=== PATIENT | female | born 1965 | race African-American/Black ===

== ENCOUNTER 2017-10-03 11:21 | Emergency (ER) | payer MEDICAID, SELFPAY ==
[2017-10-03 11:22] VITALS: BP 147/87; PULSE 101; RESP 18; TEMP 36.6; O2SAT 100; BMI 33.4
--- NOTE | 2017-10-03 11:54 | VDLE_ITS ---
Reason For Study: PAIN RIGHT GSV is normal. CFV is compressible, spontaneous, phasic, competent and demonstrates normal augmentation. FV is compressible, spontaneous, phasic, competent and demonstrates normal augmentation. POP V is compressible, spontaneous, phasic, competent and demonstrates normal augmentation. T/P Trunk is compressible. PTV is compressible. RT PerV is compressible. There is a hypoechoic, nonvascularized structure located in the Rt Popliteal space measuring 2.8 x 3.0 cm. Procedure Exam performed portable in ED. A preliminary report was called and/or faxed to ED. Interpretation Summary Deep veins of the right lower extremity are patent and compressible segmentally. There is no evidence of right lower extremity deep vein thrombosis. Valvular competence appears intact within the proximal deep venous system on the right . The right greater saphenous vein appears patent and compressible segmentally. A non-vascular, hypoechoic structure is noted in the right popliteal space, measuring 2.8 cm x 3.0 cm. This probably represents a popliteal cyst. Clinical correlation is advised. Ordering Physician: Fern Palma Performed By: Tiera Joy, AIDA, RVT
[2017-10-03] MEDS: predniSONE 20 MG Tablet 60 MG PO (12:02)
--- NOTE | 2017-10-03 15:15 | ED.DCSUM_ITS ---
- ER Visit Summary Date of Service: 10/03/17 Chief Complaint: Right leg pain History of Present Illness: The patient is a 52 F with pain and numbness to the mid right thigh and distally for the past 1 week. She states she has mild back pain. She has been having trouble with laxity of her kneecap on the right knee , especially when going up or down steps. She feels a swollen area behind her knee. She does have a history rheumatoid arthritis and neuropathy. She follows with a fatback trimmer but does not have an orthopedic physician. Physical Examination: Vital signs unremarkable. Patient sitting upright in bed no acute distress. Heart is regular rate and rhythm. Lung sounds are clear. Abdomen is soft nontender. Back examination was reproducible tenderness in the right low lumbar paraspinal muscles. Lower extremity examination reveals mild tenderness in the posterior right knee. She has full range of motion. She is strong distal pulses. There are no overlying skin changes and no focal joint pain or edema. Test Results: Venous ultrasound reveals no evidence of DVT. She has a Mitchell's cyst noted. Emergency Department Course and Treatment: Patient is given p.o. prednisone. On repeat evaluation she feels improved. She will be referred to orthopedics for follow-up and given a prednisone taper. Treatment Plan: [] Disposition: Discharge Impression: 1. Mitchell's cyst right knee 2. Lumbar radiculopathy This note was generated with [employer] dictation software. It may contain incorrect words, spelling, and punctuation that were not noted in review of the chart prior to signing ED Disposition - Plan for ED Patient: Chief Complaint: Lower Extremity Injury Referrals: Care Physician,No Primary [Primary Care Provider] -
--- NOTE | 2017-10-03 15:15 | ED.DEP ---
ED Disposition - Plan for ED Patient: Disposition: Home or Assisted Living Chief Complaint: Lower Extremity Injury Instructions: ED Cyst Mitchell, ED Sciatica Prescriptions: Prednisone 10 mg PO UD #33 tablet Referrals: Kevin Willis MD [STAFF PHYSICIAN] - Loren Monroe DO [STAFF PHYSICIAN] -
[2017-10-03 15:22] VITALS: BP 172/125
[2017-10-03 15:24] VITALS: BP 172/125; PULSE 80; RESP 18; O2SAT 98
== END 2017-10-03 15:25 | disposition home or self-care (01) ==
PROVIDERS: Emergency Provider Emergency Medicine
DX: M71.21 Synovial cyst of popliteal space [Baker], right knee (principal); M54.16 Radiculopathy, lumbar region; I10 Essential (primary) hypertension; J45.909 Unspecified asthma, uncomplicated; K21.9 Gastro-esophageal reflux disease without esophagitis; G62.9 Polyneuropathy, unspecified; M06.9 Rheumatoid arthritis, unspecified; Z72.0 Tobacco use
CPT/HCPCS: 93971; 99282

== ENCOUNTER → 2017-10-29 10:10 | Outpatient (CLI) | payer MEDICAID, SELFPAY ==
--- NOTE | 2017-10-29 10:12 | RAD_ITS ---
STUDY: X-RAY - RIGHT KNEE REASON FOR EXAM: Female, 52 years old. Bilateral knee pain. TECHNIQUE: 4 view(s) of the knee. COMPARISON: None. FINDINGS: Normal visualized distal femur. Normal visualized proximal tibia and fibula. Normal proximal tibiofibular articulation. There is severe arthrosis of the medial compartment, moderate arthrosis of the lateral compartment and mild arthrosis of the patellofemoral compartment. There is a joint effusion with multiple intra-articular osteochondral bodies. The soft tissue structures are otherwise unremarkable. RAD/Knee 4 or More Views IMPRESSION: Tricompartmental arthrosis as described. Intra-articular osteochondral bodies. Electronically Signed: Gabriele Goldstein MD at 10:27 EDT , Service support ,
--- NOTE | 2017-10-29 10:12 | RAD_ITS ---
STUDY: X-RAY - LEFT KNEE REASON FOR EXAM: Bilateral knee pain. TECHNIQUE: 4 view(s) of the knee. COMPARISON: None. FINDINGS: Normal visualized distal femur. Normal visualized proximal tibia and fibula. Normal proximal tibiofibular articulation. There are small marginal osteophytes without joint space narrowing of the medial femorotibial compartment. There are marginal osteophytes with joint space narrowing of the lateral femorotibial compartment. There are marginal osteophytes with joint space narrowing of the patellofemoral articulation. There is mild lateral subluxation of the patella There is a small joint effusion. RAD/Knee 4 or More Views IMPRESSION: Arthrosis of the lateral femorotibial and patellofemoral compartments. Mild lateral subluxation of the patella. Small joint effusion. Electronically Signed: Hieu Garsia MD at 9:26 EDT Tel , Service support ,
== END ==
PROVIDERS: Visit Provider Orthopaedic Surgery
DX: M25.561 Pain in right knee (principal); M25.562 Pain in left knee
CPT/HCPCS: 73564; 87070; 87075; 87205; 89050; 89051; 89060

== ENCOUNTER → 2017-10-29 11:52 | Outpatient (CLI) | payer MEDICAID, SELFPAY ==
[2017-10-29 12:14] LABS: Synovial Fld Mononuclear WBC % 57.8 %; Synovial Fld Polynuclear WBC # 0.416 10^3/ul; Synovial Fld Polynuclear WBC % 42.2 %
[2017-10-29 12:21] LABS: AUTO B FLUID DILUENT BKGD CT WBC <0.1 RBC <0.01 (W<.1,R<.01); Appearance /Synovial Fluid Clear (CLEAR); Color / Synovial Fluid Yellow (Pale Yellow); Source / Synovial Fluid L KNEE; Source- Body Fluid SYNOVIAL; Viscosity / Synovial Fluid Sl. Viscous (HIGH)
[2017-10-29 12:31] LABS: RBC /Synovial Fluid 395 /mm3 (0)
[2017-10-29 13:48] LABS: Lymph 15 %; Monocyte /Synovial Fluid 13 %; Neutrophil 72 % (0-25)
[2017-10-29 13:51] LABS: Body Fluid QC Type(s) BF1Q,BF2Q
[2017-10-29 15:17] LABS: Pathologist Comment Reviewed; Pathologist Review Reviewed
== END ==
PROVIDERS: Visit Provider Orthopaedic Surgery
DX: M17.5 Other unilateral secondary osteoarthritis of knee (principal); M25.762 Osteophyte, left knee
CPT/HCPCS: 87070; 87075; 87205; 89050; 89051; 89060

== ENCOUNTER 2017-11-17 14:00 | Outpatient (RCR) | payer MEDICAID, SELFPAY ==
--- NOTE | 2017-11-04 11:51 | HP.PTEVAL ---
Patient's Visit Information DONELL HARRIS is a 52 year old F referred to Physical Therapy by Loren Monroe DO with a diagnosis of Left Knee. Date of Evaluation: 11/04/17 Physical Therapist: Isabel Rooney - Visit Plan Frequency: 1x/Week Duration: 4 Weeks Plan: Focus on s/s of LE and pain managment - Subjective Subjective: Patient reports that she has had knee pain for her whole life but when she turned 44 it all went downhill. She had no specific injury at 44 but thats when her body started to get old. She feels that her knee pain is getting worse. She was in so much pain last night that she almost cancelled her apt today and went to the ER. She does not want to take pain medication. She saw Dr. Duvall last week who gave her an injection in the left knee. She feels that it helped to take the swelling down but that it did not really change the pain levels. Her pain is located in the whole knee joint but does not radiate. She reports the pain is sharp and achy. Pain at the worst is 12/10 agg by going up stairs and walking/standing. Her pain at the best is a 5/10 eases are wrapping them with benedicto bandges. She reports no N/T in the LE. She reports no history of trauma to the knees. She has been told that she has flat feet and they may be the root of her knee problems. She is being fitted for a brace next week by Jamie in Dr. Duvall office. She has had xrays but no other imaging. She reports her right knee is also bad but MD is more focused on her left. Sleep is disturbed both hard to fall asleep and it wakes her through the night- back sleeper. 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 Pmhx: asthma Meds: albuterol PRN. Plans to join the [facility] and likes to be in the water- thinking aquatic therapy would be good. - Objective Posture: FH, RS- can correct with VC's. Gait: poor pattern- decreased heel/toe pattern- valgus at the knees. Observation: signficant pes planus bilaterally- wearing unsupportive shoes. SLS: 5 sec then LOB and requires UE A. HR/TR: able with UE A- equal weight distribution. Palpation: tender throughout knee- medial and lateral joint lines and along the superior border of the patella. ROM: 0-120 degrees. Strength: ankle: 5/5, Knee:4+/5 with pain, Hip: 4/5 with pain Core: fair. Stairs: asc/desc 8 recip with no HR- poor control with descent and jumps to the next step with ascend. Flex: HS: moderate, Gastroc: mod - Goals Goal 1:: Patient will be I with HEP and progression Goal Time Frame: 4-6 Weeks Goal 2:: Patient will asc/desc 8 recip with 1 HR and good pattern/control Goal Time Frame: 4-6 Weeks Goal 3:: Patient will demo 5/5 strength in LE Goal Time Frame: 4-6 Weeks Goal 4:: Patient will report 2/10 pain for 1 week Goal Time Frame: 4-6 Weeks - Rehabilitation Potential Physical Therapy Diagnosis: Patient presents with hypmobility- she has decreased strength, flex and muscular endurance leading to poor gait and increased pain with ADL's Rehabilitation Potential: Fair - Anticipated Interventions Patient/Client Instruction: Educate patient on: Benefits of Fitness Program Therapeutic Exercise to Include: Strength training, Endurance training, Balance training, Agility training, Body mechanics, Postural training, Flexibilty training, Gait and locomotor training, In an aquatic setting, Dynamic Lumbar Stabilization For the Purpose of:: To improve muscle performance and motor function Thank you for the opportunity to evaluate your patient. For Medicare and Medicare HMO plans, please review the plan of care and approve it. It will need to be FAXED BACK to us at [phone] for Medicare purposes. Please let me know if there are questions or concerns regarding this plan of care. Physician Signature: Date:
--- NOTE | 2018-01-12 10:05 | HP.PT.NRP ---
HP - Discharge Summary (1) - Patient Information DONELL HARRIS was seen in my office for initial evaluation on 11/04/17. The following Plan of Care was established for this patient: Initial Frequency: 1x/Week Initial Duration: 4 Weeks - Anticipated Interventions Patient/Client Instruction: Educate patient on: Benefits of Fitness Program Therapeutic Exercise to Include: Strength training, Endurance training, Balance training, Agility training, Body mechanics, Postural training, Flexibilty training, Gait and locomotor training, In an aquatic setting, Dynamic Lumbar Stabilization For the Purpose of:: To improve muscle performance and motor function This patient was last seen in our office . Pertinent comments regarding their Physical therapy will appear below: Patient has not attended therapy in over 30 days- appropriate for d/c- return to MD for further evaluation as needed. At this point I will be discontinuing this patient from physical therapy. I would be happy to see this patient again in the future if found appropriate by the physician. Thank you! Isabel Rooney
== END 2017-11-17 19:00 | disposition home or self-care (01) ==
LOC: PT 14:00
PROVIDERS: Visit Provider Orthopaedic Surgery
DX: M17.12 Unilateral primary osteoarthritis, left knee (principal); M23.8X2 Other internal derangements of left knee
CPT/HCPCS: 97113; 97161

== ENCOUNTER → 2017-12-22 11:23 | Outpatient (CLI) | payer MEDICAID, SELFPAY | PROVIDERS: Visit Provider Registered Nurse | DX: R07.89 Other chest pain (principal); R00.2 Palpitations | CPT/HCPCS: 93225; 93226 ==

== ENCOUNTER 2018-01-16 11:22 | Emergency (ER) | payer MEDICAID, SELFPAY ==
[2018-01-16 11:23] VITALS: BP 171/104; PULSE 78; RESP 18; TEMP 36.6; O2SAT 100; BMI 34.3
[2018-01-16] MEDS: Smz/Tmp Ds Tablet 1 TABLET PO (12:24)
--- NOTE | 2018-01-16 13:34 | ED.VIS.GEN ---
History of Present Illness Chief Complaint: Abscess Informant: Patient Onset: Days - 3 Context: Gradual Onset Timing: Continuous Quality: sore Location: Beneath right breast on chest wall Current Severity: Moderate Maximum Severity: Moderate Worsened by: Palpation Associated Symptoms: None. No spontaneous discharge or fevers Prior similar symptoms: Yes Past Medical History - Allergies and Home Meds Allergies/Adverse Reactions: Allergies aspirin Allergy (Unknown, Verified 01/16/18 11:24) Unknown banana Allergy (Verified 01/16/18 11:24) Anaphylaxis Primary Care Physician: Care Physician,No Primary [Primary Care Provider] - Past Medical History: None Lives: Spouse/ Significant Other Smoking Status: Current every day smoker Drugs: None Review of Systems General: Denies: Chills, Fever Respiratory: Denies: Dyspnea, Cough Skin: Reports: Abscess. Denies: Abrasions Physical Exam Vital Signs/Narrative: Vital Signs Temp Pulse Resp BP Pulse Ox 01/16/18 11:23 98 F 78 18 171/104 H 100 Inital Vital Signs reviewed: Yes General: Well nourished, Well developed Head: Normocephalic, Atraumatic Respiratory: No distress, Chest tenderness - Right inframammary chest wall at abscess. Mild surrounding cellulitis only. Skin: - - 3 cm abscess chest wall right inframammary area. Fluctuant, pointing. No spontaneous discharge. Neurological: Alert, Oriented x3, Cranial nerves II-XII grossly intact, Normal Strength, Normal Sensation, Normal Gait Psychological: Normal affect Diagnostic/Tx/Re-eval - Medical Decision Making Patient requesting incision and drainage which was performed, significant amount of purulent material was drained. Dressing was placed. She was placed on Bactrim and given 1 [place] post procedurally. She was also prescribed mupirocin ointment to try to eradicate colonized state, at patient request. Also advised to follow-up for blood pressure recheck given her pressure today. Procedures Procedure(s): Incision and drainage abscess, simple -- isopropanol prep and local 3 cc plain 1% lidocaine anesthesia. Further prepped with chlorhexidine, and sides centrally with #11 blade, significant amount of purulent material expressed along with some mild bleeding. Probed and deloculated, cavity irrigated and dressed. ED Disposition - Plan for ED Patient: Disposition: Home or Assisted Living Chief Complaint: Abscess Diagnosis: Cutaneous abscess of chest wall, Hypertension Prescriptions: Mupirocin [Bactroban] 1 applic NARES BID 5 Days #1 tube Smz/Tmp Ds [Bactrim Ds] 1 tablet PO BID #20 tablet Referrals: Julieth Longo [NON-STAFF] - 3-5 Days if not improving (Or your primary doctor if you have one)
--- NOTE | 2018-01-16 13:41 | ED.VISSUMM ---
- ER Visit Summary Date of Service: 01/16/18 D/C Instructions Only. See dictation separate document. ED Disposition - Plan for ED Patient: Disposition: Home or Assisted Living Chief Complaint: Abscess Diagnosis: Cutaneous abscess of chest wall, Hypertension Instructions: ED Abscess IandD Prescriptions: Mupirocin [Bactroban] 1 applic NARES BID 5 Days #1 tube Smz/Tmp Ds [Bactrim Ds] 1 tablet PO BID #20 tablet Referrals: Julieth Longo [NON-STAFF] - 3-5 Days if not improving (Or your primary doctor if you have one)
[2018-01-16] MEDS: HYDROcodone Bitartrate/Apap 5/325 Tablet PO (13:54)
== END 2018-01-16 13:57 | disposition home or self-care (01) ==
PROVIDERS: Emergency Provider Emergency Medicine
DX: L02.213 Cutaneous abscess of chest wall (principal); I10 Essential (primary) hypertension; F17.200 Nicotine dependence, unspecified, uncomplicated
CPT/HCPCS: 10060; 99282

== ENCOUNTER 2018-06-02 09:19 | Emergency (ER) | payer MEDICAID, SELFPAY ==
[2018-06-02 09:20] VITALS: BP 152/110; PULSE 91; RESP 16; TEMP 37; O2SAT 99; BMI 33.9
[2018-06-02 09:24] VITALS: TEMP 37
[2018-06-02] MEDS: Acetaminophen 500 MG Tablet 1000 MG PO (09:49)
[2018-06-02 10:31] VITALS: TEMP 36.9
--- NOTE | 2018-06-02 10:32 | ED.DCSUM_ITS ---
- ER Visit Summary Date of Service: 06/02/18 Chief Complaint: Sore throat History of Present Illness: The patient is a 52 F with a sore throat that started yesterday. It was associated with headache, body aches, cough, fevers, and chills. Patient has a history of asthma and hypertension. Denies any chest pain or shortness of breath. She is a smoker. Physical Examination: Afebrile and vital signs unremarkable except for a blood pressure of 152/110. Patient is alert and oriented. No acute distress. HEENT exam unremarkable. Neck nontender with good range of motion. No meningeal signs. Heart regular rate and rhythm. Lungs clear bilaterally. Abdomen soft and nontender. Skin unremarkable. Test Results: Rapid flu and rapid strep were negative. Emergency Department Course and Treatment: Patient treated with dexamethasone and Tylenol while awaiting results. Flu and strep were negative. This is likely a viral syndrome. She requested a work note for yesterday and today. She may use [id number] remedies for her symptoms. Return for any new or worsening issues. Treatment Plan: As above Disposition: Discharge Impression: 1. Viral illness This note was generated with [employer] dictation software. It may contain incorrect words, spelling, and punctuation that were not noted in review of the chart prior to signing ED Disposition - Plan for ED Patient: Referrals: Care Physician,No Primary [Primary Care Provider] -
--- NOTE | 2018-06-02 10:32 | ED.DEP ---
ED Disposition - Plan for ED Patient: Instructions: When You Have a Sore Throat Prescriptions: Ondansetron [Zofran Odt] 4 mg PO Q8H PRN PRN #10 tab PRN Reason: Nausea Ibuprofen [Motrin] 800 mg PO TID PRN PRN #20 tab PRN Reason: Pain Referrals: Care Physician,No Primary [Primary Care Provider] -
== END 2018-06-02 10:36 | disposition home or self-care (01) ==
PROVIDERS: Emergency Provider Emergency Medicine
DX: B34.9 Viral infection, unspecified (principal); R05 Cough; J02.9 Acute pharyngitis, unspecified; R51 Headache; M79.10 Myalgia, unspecified site; I10 Essential (primary) hypertension; J45.909 Unspecified asthma, uncomplicated; Z72.0 Tobacco use
CPT/HCPCS: 87804; 87880; 99283

== ENCOUNTER 2018-11-12 18:28 | Emergency (ER) | payer MEDICAID, SELFPAY ==
[2018-11-12 18:29] VITALS: BP 159/113; PULSE 86; RESP 18; TEMP 37.1; O2SAT 98; BMI 33.4
== END 2018-11-12 20:15 ==
PROVIDERS: Emergency Provider Emergency Medicine
DX: S99.929A Unspecified injury of unspecified foot, initial encounter (principal)

== ENCOUNTER 2019-12-21 18:00 | Emergency (ER) | payer MEDICAID, SELFPAY ==
[2019-06-17 15:44] VITALS: BMI 33.4
[2019-12-21 18:02] VITALS: BP 157/103; PULSE 98; RESP 18; TEMP 36.4; O2SAT 100; BMI 32.1
--- NOTE | 2019-12-21 19:00 | ED.VIS.GEN ---
History of Present Illness Chief Complaint: Headache Informant: Patient Onset: Today Context: Gradual Onset Current Severity: Moderate Maximum Severity: Moderate Narrative: Patient present secondary to migraine headache. She states she woke up this morning with headache. Pain started in the frontal region, radiated to the back of her head, and then down her neck. She is complaining of pain around the right ear. She did take Tylenol today without improvement. She states normally she will take Imitrex but she is currently out of that medication. She has had some sinus and allergy type symptoms the past couple days. No recent head injuries. No fever. - Past Medical History (1) Hypertension Status: Chronic (2) Neuropathy Status: Chronic (3) Asthma Status: Chronic (4) GERD (gastroesophageal reflux disease) Status: Chronic (5) Migraines Status: Chronic Past Medical History - Allergies and Home Meds Allergies/Adverse Reactions: Allergies aspirin Allergy (Unknown, Verified 12/21/19 18:01) Unknown banana Allergy (Verified 12/21/19 18:01) Anaphylaxis Primary Care Physician: Care Physician,No Primary [Primary Care Provider] - Prior records reviewed: Yes Smoking Status: Current every day smoker Review of Systems General: Reports: Chills. Denies: Fever Eyes: Denies: Visual changes - bilaterally ENT: Reports: Right ear pain. Denies: Sore throat Cardiovascular: Denies: Chest pain Respiratory: Denies: Dyspnea, Cough Gastrointestinal: Reports: Nausea, Vomiting. Denies: Abdominal pain Musculoskeletal: Denies: Extremity Pain Neurological: Reports: Headache. Denies: Weakness, Parasthesia Hematologic: Denies: Easy bruising, Easy bleeding Allergy: Denies: Uticaria Physical Exam Vital Signs/Narrative: Vital Signs Temp Pulse Resp BP Pulse Ox 12/21/19 18:02 97.6 F L 98 18 157/103 H 100 Inital Vital Signs reviewed: Yes General: Well nourished, Well developed Head: Normocephalic ENT: Moist mucous membranes, TM's clear Neck: Supple, - - No meningismus Cardiovascular: Regular rate, Regular rhythm Respiratory: No distress, CTA bilaterally Abdomen: Soft, Nontender Extremities: Nontender Skin: Normal color Neurological: Alert, Oriented x3, Normal Strength, Normal Sensation Psychological: Normal affect Diagnostic/Tx/Re-eval - Medical Decision Making Patient was given Toradol, Reglan, Benadryl, and IV fluids. On repeat evaluation she reports significant improvement. She will be discharged home with family this time. ED Disposition - Plan for ED Patient: Disposition: Home or Assisted Living Diagnosis: Migraine Instructions: ED, Migraine (Classical) Referrals: Maxwell Ardon III, MD [STAFF PHYSICIAN] - As Needed
[2019-12-21] MEDS: DiphenhydrAMINE 50 MG/ML Syringe 25 MG IV (19:21)
[2019-12-21] MEDS: 0.9% Normal Saline 1,000 ML 999 ML IV (19:21)
[2019-12-21] MEDS: Ketorolac 30 MG/ML Syringe IV (19:21)
[2019-12-21] MEDS: Metoclopramide 10 MG/2 ML Vial IV (19:21)
== END 2019-12-21 20:40 | disposition home or self-care (01) ==
PROVIDERS: Emergency Provider Emergency Medicine
DX: G43.909 Migraine, unspecified, not intractable, without status migrainosus (principal); I10 Essential (primary) hypertension; K21.9 Gastro-esophageal reflux disease without esophagitis; J45.909 Unspecified asthma, uncomplicated; F17.200 Nicotine dependence, unspecified, uncomplicated
CPT/HCPCS: 96361; 96374; 96375; 99283; J7030

== ENCOUNTER 2020-04-15 14:11 | Emergency (ER) | payer MEDICAID, SELFPAY ==
[2020-04-15 14:12] VITALS: BP 161/106; PULSE 103; RESP 18; TEMP 35.2; O2SAT 97; BMI 30.4
[2020-04-15 14:53] LABS: Absolute Neutrophil Count 4.7 X10^3/uL (2.0-7.7); Basophil# 0.03 X10^3/uL; Basophil% 0.4 % (0-1); Eosinophil# 0.13 X10^3/uL; Eosinophils% 1.6 % (0-5); Hemoglobin 13.9 g/dL (12.0-15.0); Lymphocyte % 34.6 % (19-41); Mean Corp Hgb Conc 33.9 g/dL (32-36); Mean Corpuscular Volume 91.5 fL (81-99); Mean Platelet Vol. 9.7 fl (6.2-12.0); Monocyte# 0.39 X10^3/uL; Monocyte% 4.8 % (0-10); NRBC Flagged by Analyzer 0 % (0-5); Neutrophil # 4.72 X10^3/uL (2.7-7.7); Neutrophil % 58.4 % (47-70); Platelet Count 280 K/mm3 (150-450); RBC Distribution Width CV 12.3 % (11.6-14.6); RBC Distribution Width SD 41.2 fl (35.1-43.9); Red Blood Count 4.48 M/mm3 (4.2-5.4); White Blood Count 8.1 K/mm3 (4.4-11.0)
[2020-04-15 15:01] VITALS: BP 147/104; PULSE 79; RESP 15; TEMP 36.9; O2SAT 96
--- NOTE | 2020-04-15 15:05 | RAD_ITS ---
STUDY: X-RAY CHEST REASON FOR EXAM: Female, 54 years old. PT WOKE UP WITH SOB, COUGH, AND NOT FEELING WELL. TECHNIQUE: AP COMPARISON: 12/24/2010 FINDINGS: The lungs are clear and expanded. There is no demonstrated pleural abnormality. Normal size heart. Normal mediastinum and rach. Normal visualized pulmonary arteries. Normal visualized aortic arch and descending thoracic aorta. Normal visualized thoracic spine. Normal visualized ribs, clavicles, and shoulders. There is no demonstrated abnormality of the visualized soft tissue structures of the upper abdomen. RAD/Chest 1 View (Portable) IMPRESSION: Stable, nonacute portable x-ray examination of the chest. Electronically Signed: Ok Jane MD (Brooks) at 15:15 EST , Service support ,
[2020-04-15 15:10] LABS: ALB/GLOB Ratio 1.1 RATIO (0.9-2.4); AST(SGOT) 17 U/L (15-37); Alanine Aminotransfer ALT/SGPT 24 U/L (13-56); Albumin, Serum 3.8 g/dL (3.2-5.0); Alkaline Phosphatase 69 U/L (45-117); Anion Gap 6 (5-15); BUN 9 mg/dL (7-18); BUN/Creat Ratio 11.5 RATIO (10-20); Calcium,Total 8.8 mg/dL (8.5-10.1); Chloride 111 mmol/L (98-107); Creatinine, Serum 0.78 mg/dL (0.55-1.02); EST Glomerular Filtration Rate 82 mL/min (>60); Est Glom Filt Rate - Afr Amer 99 mL/min (>60); Estimated Creatinine Clearance 85.11 ml/min; Globulin 3.6 g/dL (2.2-4.2); Glucose 95 mg/dL (74-106); Potassium 3.6 mmol/L (3.5-5.1); Protein, Total 7.4 g/dL (6.4-8.2); Sodium Level 140 mmol/L (136-145)
--- NOTE | 2020-04-15 15:19 | ED.DCSUM_ITS ---
- ER Visit Summary Date of Service: 04/15/20 Chief Complaint: Shortness of breath History of Present Illness: The patient is a 54 F who presents with shortness of breath that began today. Patient states she feels like she cannot catch her breath. Patient states she feels fatigued and sleepy. Patient admits to a cough with some white sputum. Patient denies any chest pain. Patient denies any palpitations. Patient states nothing makes her breathing better or worse. Patient denies any fevers or chills. Patient denies any nausea or vomiting. Patient does admit to some generalized aching. Physical Examination: Vital signs are stable except for mild tachycardia of 103. Patient is afebrile. Patient is in no acute distress. Oral mucosa is pink and moist. Neck is supple. Trachea is midline. There is no JVD. Heart was regular rate and rhythm. Lungs are clear and equal bilaterally. Abdomen is soft. Bowel sounds are normal. There is no tenderness. Cranial nerves II through XII are intact. There are no focal motor or sensory deficits noted. Extremities are intact. There is no calf tenderness or edema. Test Results: Portable 1 view chest x-ray was obtained. On my interpretation, lung perez are clear. There is normal cardiac silhouette. Bony thorax is normal. There is no acute process noted. Radiologist also interpreted the x- ray and agrees. CBC and comprehensive metabolic profile were obtained and were within normal limits. Lactate was normal. Influenza swab was negative. COVID- 19 rapid antigen was obtained and was negative. Emergency Department Course and Treatment: Patient was given albuterol inhaler here. Patient was feeling better on reevaluation. Patient was instructed to use her albuterol inhaler as needed. Patient was instructed to follow-up with her primary care physician in 5 to 7 days. Patient understood and was agreeable with the plan. All questions were answered. Disposition: Discharge home Impression: Viral upper respiratory infection This note was generated with [employer] dictation software. It may contain incorrect words, spelling, and punctuation that were not noted in review of the chart prior to signing ED Disposition - Plan for ED Patient: Disposition: Home or Assisted Living Diagnosis: Viral upper respiratory infection Instructions: ED URI, Viral, No Abx (Adult) Referrals: Shiva Portillo MD [STAFF PHYSICIAN] -
[2020-04-15 15:29] LABS: Lactic Acid 0.8 mmol/L (0.4-1.9)
[2020-04-15 16:24] VITALS: BP 115/58; PULSE 81; RESP 20; O2SAT 95
== END 2020-04-15 16:43 | disposition home or self-care (01) ==
PROVIDERS: Emergency Provider Emergency Medicine
DX: J06.9 Acute upper respiratory infection, unspecified (principal); J45.909 Unspecified asthma, uncomplicated; F17.210 Nicotine dependence, cigarettes, uncomplicated
CPT/HCPCS: 71045; 80053; 83605; 85025; 87426; 87804; 99284; A4216

== ENCOUNTER 2022-09-19 14:02 | Emergency (ER) | payer MEDICAID, SELFPAY ==
[2022-09-19 14:04] VITALS: BP 157/111; PULSE 81; RESP 18; TEMP 36.9; O2SAT 97; BMI 34.9
[2022-09-19] MEDS: Metoclopramide 10 MG/2 ML Vial IV (14:47)
[2022-09-19] MEDS: DiphenhydrAMINE 50 MG/ML Syringe 25 MG IV (14:47)
[2022-09-19] MEDS: 0.9% Normal Saline 1,000 ML 999 ML IV (14:47)
[2022-09-19 14:52] VITALS: BP 150/102; PULSE 71; RESP 16; O2SAT 94
[2022-09-19] MEDS: Ketorolac 30 MG/ML Syringe IV (16:18)
[2022-09-19] MEDS: SUMAtriptan 6 MG/0.5 ML Vial SC (16:18)
--- NOTE | 2022-09-19 16:24 | EDS_ITS ---
HPI History of Present Illness Chief Complaint: Headache Informant: patient Onset/Context/Timing Onset: Today Context: Sudden Timing: Continuous Quality -Headache: Positive for Similar Prior Headaches Location: Bilateral parietal area Worsened by: Bright lights, loud noises Relieved by: Nothing Associated Symptoms/Injury Associated Symptoms: Positive for Nausea, Preceding Aura and Photophobia; Negative for Fever, Vomiting, Sore Throat, Sinus Pressure, Numbness, Tingling, Visual Changes, Blurred Vision or Visual Loss Narrative Narrative: Patient presents with headache that began today. Patient states she woke up wi th the headache this morning. Patient states it began rather suddenly. Patient states it has been constant. Patient states it is on both sides of her head. Patient states it feels similar to prior migraine headaches. Patient admits to some nausea but denies any vomiting. Patient did she some spots in front of her vision and flashes prior to the headache starting. Patient states her pain is worse with bright lights and loud noises. Patient denies any neck pain. [facility] Medical History Arthritis Asthma Hay fever Knee pain Lung disease Home Medications ibuprofen 800 mg tablet 800 mg PO TID PRN PRN Pain #20 tabs 06/02/18 [Rx Last Taken Unknown] ondansetron 4 mg disintegrating tablet 4 mg PO Q8H PRN PRN Nausea #10 tabs 06/02/18 [Rx Last Taken Unknown] albuterol sulfate 90 mcg/actuation aerosol inhaler 1 puff inhalation Q4H PRN PRN Wheezing 12/21/19 [History Last Taken Unknown] Allergy/AdvReac Type Severity Reaction Status Date / Time aspirin Allergy Unknown Unknown Verified 04/15/20 14:14 banana Allergy Anaphylaxis Verified 04/15/20 14:14 Family History (Updated 10/29/17 @ 10:02 by Macy Reid) Mother Rheumatoid arthritis Other Asthma Voss's palsy Cancer Diabetes Hay fever Surgical History History of partial hysterectomy Social History Smoking Status: Current every day smoker tobacco type: cigarettes alcohol intake: current alcohol intake frequency: a few times a week Alcohol type: beer ROS ROS ED Constitutional Constitutional ED: Denies chills or fever(s) Eyes Eyes: Denies blurry vision or change in vision ENT ENT ED: Denies rhinorrhea or sore throat Cardiovascular Cardiovascular: Denies chest pain or palpitations Respiratory/Chest Respiratory/Chest: Denies cough or dyspnea Gastrointestinal Gastrointestinal: Reports nausea; Denies vomiting Genitourinary Genitourinary ED: Denies dysuria or hematuria Musculoskeletal Musculoskeletal: Denies back pain or neck pain Integumentary Denies abscess or rash Neurologic Neurologic: Reports headache(s); Denies weakness Allergic/Immunologic Allergic/Immunologic ED: Denies mouth swelling or urticaria EXAM Physical Exam Const Vital Signs: 09/19/22 14:04 09/19/22 14:52 Temperature 98.4 F Temperature Source Oral Pulse Rate 81 71 Respiratory Rate 18 16 Blood Pressure 157/111 H 150/102 H Blood Pressure Mean 126 118 Pulse Ox 97 94 Oxygen Delivery Method Room Air Room Air Positive well nourished and well developed General Appearance ED: well developed HEENT Reports moist mucous membranes Neck supple and no JVD Resp normal respiratory effort and clear to auscultation bilaterally Cardio regular rate, regular rhythm and no murmurs GI normal to inspection, nondistended, normoactive bowel sounds and non-tender Palpation: soft Extremity normal to inspection General Extremety ED: Negative for edema or tenderness General Extremity: Negative for edema Neuro oriented x3, CN's II-XII intact bilaterally and no sensory deficits noted Sensorium / Orientation: alert Motor Exam: strength 5/5 throughout Psych mental status grossly normal Skin no rashes or lesions noted MDM MDM MDM Narrative Medical decision making narrative: Patient states this feels similar to prior migraine headaches. Therefore, patient was given migraine cocktail including IV fluids, Reglan, and Benadryl. Patient had minimal relief with this. Patient was given a dose of Toradol and Imitrex. Patient is feeling better after this. Patient was instructed to rest in a dark quiet room. Patient was instructed to drink plenty of fluids. Patient was instructed to follow-up with her primary care physician in 5 to 7 days. Patient understood and was agreeable with the plan. All questions were answered. Discharge Plan Triage Chief Complaint: Headache ED Provider: Catracho Nazario Dx/Rx/DC Orders Clinical Impression: Migraines Instructions: ED, Migraine (Classical) Prescriptions: No Action ibuprofen 800 MG tablet 800 mg PO TID PRN PRN (Reason: Pain) Qty: 20 0RF ondansetron 4 MG tablet 4 mg PO Q8H PRN PRN (Reason: Nausea) Qty: 10 0RF albuterol sulfate 1 PUFF inhaler 1 puff inhalation Q4H PRN PRN (Reason: Wheezing) Primary Care Provider: Peggy Ramirez Referrals: Peggy Ramirez MD [Primary Care Provider] - 5-7 Days Disposition Disposition: Home, Self Care
== END 2022-09-19 17:06 | disposition home or self-care (01) ==
PROVIDERS: Emergency Provider Emergency Medicine; PCP Internal Medicine; Visit Provider Emergency Medicine
DX: G43.909 Migraine, unspecified, not intractable, without status migrainosus (principal); F17.210 Nicotine dependence, cigarettes, uncomplicated; J45.909 Unspecified asthma, uncomplicated; Z79.899 Other long term (current) drug therapy; Z90.710 Acquired absence of both cervix and uterus
CPT/HCPCS: 96361; 96372; 96374; 96375; 99283; J7030; J3030